=== PATIENT | female | born 1965 | race Caucasian/White ===

== ENCOUNTER 2016-12-21 17:39 | Emergency (ER) | payer OTHER ==
[~2016-12-21] VITALS: Wt 97.5 kg
[2016-12-21] MEDS ORDERED: AMOX1TAB10 PO (18:46)
[2016-12-21] MEDS ORDERED: IBUP-1542 PO (18:46)
[2016-12-21] MEDS ORDERED: TRAM50TA2 PO (18:46)
--- NOTE | 2016-12-21 18:50 | ERD ---
ER Documentation Chief Complaint Date/Time DATE: 12/21/16 TIME: 18:47 Chief Complaint POSSIBLE SWELLING GUM HPI 31-year-old female presents here in emergency department for complaints of right upper gum swelling and pain that started 3 days ago. Patient described the pain as throbbing pain, 6/10 scale, is worse upon touching the area. Patient denies any fever or chills. [place] started to take amoxicillin for the last 2 days which has helped. Patient did not take any medications for pain. Patient denies any patient's swelling, patient denies any trauma on affected area. ROS All systems reviewed and are negative except as per history of present illness. Medications Home Meds Active Scripts Tramadol HCl (Tramadol HCl) 50 Mg Tablet, 50 MG PO Q6 Y for SEVERE PAIN LEVEL 7- 10, #20 TAB Prov:FANY BELTRAN NP 12/21/16 Ibuprofen* (Motrin*) 600 Mg Tab, 600 MG PO Q6H Y for PAIN AND OR ELEVATED TEMP, #30 TAB Prov:FANY BELTRAN NP 12/21/16 Amoxicillin/Potassium Clav (Amox-Clav 875-125 mg Tablet) 875-125 mg Tab, 1 TAB PO BID for 7 Days, #14 TAB Prov:FANY BELTRAN NP 12/21/16 Allergies Allergies: Coded Allergies: No Known Allergy (Unverified , 12/21/16) PMhx/Soc Medical and Surgical Hx: pt denies Medical Hx, pt denies Surgical Hx History of Surgery: No Anesthesia Reaction: No Hx Neurological Disorder: No Hx Respiratory Disorders: No Hx Cardiac Disorders: No Hx Psychiatric Problems: No Hx Miscellaneous Medical Probl: No Hx Alcohol Use: No Hx Substance Use: No Hx Tobacco Use: No Smoking Status: Never smoker FmHx Family History: No coronary disease, No diabetes, No other Physical Exam Vitals Vital Signs Date Time Temp Pulse Resp B/P Pulse Ox O2 Delivery O2 Flow Rate FiO2 12/21/16 17:47 97.9 71 18 136/64 99 Physical Exam GENERAL: The patient is well developed and appropriate for usual state of health, in no apparent distress. HEENT: Atraumatic. Ears: Normal tympanic membrane, no erythema or bulging. No ear canal swelling. No ear discharge. Nose: normal nasal turbinates, no erythema or swelling. Normal nasal discharge. Throat: oropharynx clear. No tonsillar swelling or tonsillar exudates. No lymphadenopathy. Noted right upper gum swelling, no purulent discharge. No Facial swelling noted. No facial redness noted. No fluctuance noted. CHEST: Clear to auscultation bilaterally. There are no rales, wheezes or rhonchi. HEART: Regular rate and rhythm. No murmurs, clicks, rubs or gallops. No S3 or S4. ABDOMEN: Soft, nontender and nondistended. Good bowel sounds. No rebound or guarding. No gross peritonitis. No gross organomegaly or masses. No Campa sign or McBurney point tenderness. BACK: No midline or flank tenderness. EXTREMITIES: Equal pulses bilaterally. There is no peripheral clubbing, cyanosis or edema. No focal swelling or erythema. Full range of motion. Grossly neurovascularly intact. NEURO: Alert and oriented. Cranial nerves 2-12 intact. Motor strength in all 4 extremities with 5/5 strength. Sensation grossly intact. Normal speech and gait. SKIN: There is no apparent rash or petechia. The skin is warm and dry. HEMATOLOGIC AND LYMPHATIC: There is no evidence of excessive bruising or lymphedema. No gross cervical, axillary, or inguinal lymphadenopathy. Procedures/MDM Medical decision making: Patient's symptoms suspect is consistent with gingival disease, most likely early gingivitis, early infection. No symptoms of any dental abscess. No symptoms of any sepsis at this time. Patient appears hemodynamically stable. Patient was given for Augmentin, ibuprofen, tramadol, was advised no dental specialist for further evaluation of symptoms. Patient was advised to return to emergency department for any worsening symptoms. Disposition: Home. Stable. Departure Diagnosis: Primary Impression: Gingival disease Condition: Stable Patient Instructions: Understanding Healthy Teeth and Gums FANY BELTRAN NP Dec 21, 2016 18:50
== END 2016-12-21 18:52 | disposition home or self-care (01) ==
LOC: FTE 17:39
DX: K06.9 Disorder of gingiva and edentulous alveolar ridge, unspecified (principal)
CPT/HCPCS: 99284

== ENCOUNTER 2017-12-09 16:41 | Emergency (ER) | END 2017-12-09 18:40 | disposition home or self-care (01) ==